=== PATIENT | female | born 1965 | race Caucasian/White ===

== ENCOUNTER 2018-03-01 17:22 | Emergency (ER) | payer BC, OTHER ==
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
[2018-03-01 17:39] VITALS: BP 121/88
[2018-03-01] MEDS ORDERED: Ketorolac INJ* 30 MG/ML 1 ML VIAL IM ONE (17:51)
--- NOTE | 2018-03-01 18:31 | RAD ---
INDICATION: Acute low back pain COMPARISON: None. TECHNIQUE: 5 views of the lumbar spine were obtained. FINDINGS: No fracture is seen. There is loss of intervertebral disc height at L4/L5 and L5/S1. The vertebral bodies are anatomically aligned on the sagittal view. There is no evidence of spondylolisthesis. There is a small degree of dextroconvex curvature with the apex at the L1/L2 intervertebral disc space. IMPRESSION: Degenerative changes as described above.
[2018-03-01] MEDS ORDERED: Cyclobenzaprine TAB* 10 MG PO ONE (18:51)
== END 2018-03-01 19:10 | disposition home or self-care (01) ==
LOC: UCCORT 17:22
DX: M51.37 Other intervertebral disc degeneration, lumbosacral region (principal); M54.5 Low back pain; M62.838 Other muscle spasm
CPT/HCPCS: 72110; 81003; 96372; 99212; A9270-GY; G0463; J1885